=== PATIENT | male | born 1955 | race Two or more races ===

== ENCOUNTER 2023-01-08 14:41 | Emergency (ER) | payer OTHER ==
[~2023-01-08] VITALS: Ht 167.6 cm; Wt 76.2 kg
[2023-01-08 15:43] LABS: HEMATOCRIT 40.1 % (39.0-48.0); HEMOGLOBIN 13.5 g/dL (13-16.00); MEAN CELL VOLUME 89.8 fL (80.0-100.00); MEAN CORPUSCULAR HEMOGLOBIN 30.2 pg (27.00-32.0); MEAN CORPUSCULAR HGB CONC 33.7 g/dl (32.0-36.0); PLATELET COUNT 221 K/uL (150-450); RED BLOOD COUNT 4.46 M/uL (4.00-6.00); RED CELL DISTRIBUTION WIDTH 13.1 % (11.5-14.5)
[2023-01-08 15:57] LABS: URINE BACTERIA 49.1 uL (0.0-1933); URINE EPITHELIAL CELLS 8.1 uL (0.0-38.8); URINE RBC 3.3 uL (0.0-20.8); URINE WBC 9.8 uL (0.0-23.2)
[2023-01-08 16:01] LABS: PH,URINE 5.5 (5.0-8.0); URINE APPEARANCE Clear; URINE BILIRRUBIN Negative (NEGATIVE); URINE BLOOD Negative; URINE COLOR Dark Yellow; URINE GLUCOSE Negative (NEGATIVE); URINE LEUKOCYTE Negative; URINE NITRATE Negative; URINE UROBILINOGEN 0.2 E.U./dl
[2023-01-08 16:06] LABS: CALCIUM 8.7 mg/dL (8.5-10.1); CREATININE SERUM 0.93 mg/dL (0.70-1.30); GFR 80.8; POTASSIUM 4.08 mEq/L (3.5-5.1)
[2023-01-08 16:08] LABS: URINE PROTEIN 300 (NEGATIVE)
[2023-01-08] MEDS ORDERED: PEPCID AC20 MG PO (17:11)
[2023-01-08] MEDS ORDERED: CIPRO500 MG PO (17:11)
[2023-01-08] MEDS ORDERED: LEVSIN/SL0.125 MG SL (17:11)
== END 2023-01-08 17:42 | disposition home or self-care (01) ==
LOC: ER 14:42
PROVIDERS: Emergency Medicine
DX: K52.89 Other specified noninfective gastroenteritis and colitis (principal)
CPT/HCPCS: 36415; 96365; 96366; 99284; J3490; J7030